=== PATIENT | female | born 1940 | race Caucasian/White ===

== ENCOUNTER 2017-08-06 20:21 | Inpatient (IN) | payer MEDICARE, OTHER ==
[2017-08-06 22:49] LABS: ADD MAN DIFF? NO
[2017-08-06 22:51] LABS: BASOPHIL # 0.1 10^3/ul (0.0-0.1); BASOPHILS % 0.8 % (0.0-2.0); EOSINOPHILS # 0.1 10^3/ul (0.0-0.5); EOSINOPHILS % 1.3 % (0.0-7.0); HEMATOCRIT 37.4 % (37.0-47.0); LYMPHOCYTES # 0.8 10^3/ul (0.8-2.9); LYMPHOCYTES % 9.8 % (15.0-51.0); MEAN CORPUSCULAR HEMOGLOBIN 27.5 pg (29.0-33.0); MEAN CORPUSCULAR HGB CONC 32.1 g/dl (32.0-37.0); MEAN CORPUSCULAR VOLUME 85.8 fl (82.0-101.0); MEAN PLATELET VOLUME 9.5 fl (7.4-10.4); MONOCYTE # 0.6 10^3/ul (0.3-0.9); MONOCYTES % 7.2 % (0.0-11.0); NEUTROPHIL # 6.9 10^3/ul (1.6-7.5); NEUTROPHILS % 80.7 % (39.0-77.0); PLATELET COUNT 275 10^3/UL (140-415); RED BLOOD COUNT 4.36 10^6/ul (4.20-5.40); RED CELL DISTRIBUTION WIDTH 16.9 % (11.5-14.5)
[2017-08-06 22:51] LABS: WHITE BLOOD COUNT 8.6 10^3/ul (4.8-10.8)
[2017-08-06 23:04] LABS: ADD UMIC YES; UR ASCORBIC ACID NEGATIVE (NEGATIVE); UR BACTERIA FEW /HPF (NONE SEEN); UR BILIRUBIN (Dip) NEGATIVE (NEGATIVE); UR BLOOD (Dip) NEGATIVE (NEGATIVE); UR CLARITY CLOUDY (CLEAR); UR COLOR AMBER (YELLOW); UR GLUCOSE (Dip) NEGATIVE (NEGATIVE); UR KETONES (Dip) NEGATIVE (NEGATIVE); UR LEUKOCYTE ESTERASE (Dip) NEGATIVE Leu/ul (NEGATIVE); UR NITRITE (Dip) NEGATIVE (NEGATIVE); UR RBC 0 /HPF (0-5); UR TOTAL PROTEIN (Dip) NEGATIVE (NEGATIVE); UR UROBILINOGEN (Dip) NEGATIVE (NEGATIVE); UR WBC 3 /HPF (0-5)
[2017-08-06 23:07] LABS: ALANINE AMINOTRANSFERASE 21 IU/L (13-69); ALBUMIN 3.6 g/dl (3.3-4.9); ALBUMIN/GLOBULIN RATIO 1.12; ALKALINE PHOSPHATASE 120 IU/L (42-121); ANION GAP 11 (8-16); ASPARTATE AMINO TRANSFERASE 26 IU/L (15-46); BILIRUBIN,INDIRECT 0.5 mg/dl (0-1.1); BILIRUBIN,TOTAL 0.5 mg/dl (0.2-1.3); BLOOD UREA NITROGEN 17 mg/dl (7-20); CALCIUM 9.4 mg/dl (8.4-10.2); CARBON DIOXIDE 38 mmol/L (21-31); CHLORIDE 98 mmol/L (97-110); CREATININE 0.52 mg/dl (0.44-1.00); GLUCOSE 87 mg/dl (70-220); LIPASE 38 U/L (23-300); POTASSIUM 3.7 mmol/L (3.5-5.1); SODIUM 143 mmol/L (135-144); TOTAL PROTEIN 6.8 g/dl (6.1-8.1)
[2017-08-06 23:19] LABS: B-TYPE NATRIURETIC PEPTIDE 1250 PG/ML (0-450)
[2017-08-06 23:21] LABS: TROPONIN-I < 0.012 ng/ml (0.00-0.12)
[2017-08-07] MEDS: CEFEPIME 1GM/50 ML (PMX) 50 ML IVPB (02:25)
[2017-08-07] MEDS: FUROSEMIDE 20 MG INJ IV (02:25)
[2017-08-07] MEDS ORDERED: NACL 0.9% 3 ML SYG IV (06:30)
[2017-08-07] MEDS ORDERED: ONDANSETRON 4 MG INJ IV (06:30)
[2017-08-07] MEDS ORDERED: NITROGLYCERIN (SL) 0.4 MG TAB SL (06:30)
[2017-08-07] MEDS ORDERED: ALBUTEROL/IPRATROPIUM (NEB) 3 ML AMP HHN (06:30)
[2017-08-07] MEDS: SUCRALFATE 1 GM TAB PO ×4 (08:19→20:48)
[2017-08-07] MEDS: ISOSORBIDE MONONITRATE(SR)60 MG TAB PO ×2 (08:19→20:49)
[2017-08-07] MEDS: METOPROLOL (XL) 25 MG TAB PO ×2 (08:20→20:50)
[2017-08-07] MEDS: OXYBUTYNIN 5 MG TAB PO (08:20)
[2017-08-07] MEDS: METHYLPREDNISOLONE 125 MG INJ IV (08:20)
[2017-08-07] MEDS: SPIRONOLACTONE 25 MG TAB PO (08:20)
[2017-08-07 08:27] LABS: ADD MAN DIFF? NO
[2017-08-07] MEDS: HEPARIN 5,000 UNIT/0.5 ML VIAL SC ×2 (08:39→20:59)
[2017-08-07] MEDS: CILOSTAZOL 100 MG TAB PO ×2 (08:50→22:09)
[2017-08-07] MEDS: URSODIOL 250 MG TAB PO ×2 (08:50→22:09)
[2017-08-07 09:02] LABS: ALANINE AMINOTRANSFERASE 11 IU/L (13-69); ALBUMIN 3.4 g/dl (3.3-4.9); ALBUMIN/GLOBULIN RATIO 1.13; ALKALINE PHOSPHATASE 95 IU/L (42-121); ASPARTATE AMINO TRANSFERASE 28 IU/L (15-46); BILIRUBIN,INDIRECT 0.6 mg/dl (0-1.1); BILIRUBIN,TOTAL 0.6 mg/dl (0.2-1.3); BLOOD UREA NITROGEN 15 mg/dl (7-20); CHLORIDE 96 mmol/L (97-110); CREATININE 0.51 mg/dl (0.44-1.00); GLUCOSE 86 mg/dl (70-220); POTASSIUM 3.6 mmol/L (3.5-5.1); SODIUM 145 mmol/L (135-144); TOTAL PROTEIN 6.4 g/dl (6.1-8.1)
[2017-08-07 09:12] LABS: ANION GAP 11 (8-16)
[2017-08-07 09:18] LABS: CARBON DIOXIDE 42 mmol/L (21-31)
[2017-08-07 09:27] LABS: WHITE BLOOD COUNT 8.9 10^3/ul (4.8-10.8)
[2017-08-07 09:27] LABS: BASOPHIL # 0.1 10^3/ul (0.0-0.1); BASOPHILS % 0.8 % (0.0-2.0); EOSINOPHILS # 0.1 10^3/ul (0.0-0.5); EOSINOPHILS % 1.1 % (0.0-7.0); HEMATOCRIT 37.7 % (37.0-47.0); HEMOGLOBIN 12.2 g/dl (12.0-16.0); LYMPHOCYTES # 0.7 10^3/ul (0.8-2.9); LYMPHOCYTES % 8.4 % (15.0-51.0); MEAN CORPUSCULAR HEMOGLOBIN 27.7 pg (29.0-33.0); MEAN CORPUSCULAR HGB CONC 32.4 g/dl (32.0-37.0); MEAN CORPUSCULAR VOLUME 85.7 fl (82.0-101.0); MEAN PLATELET VOLUME 9.4 fl (7.4-10.4); MONOCYTE # 0.6 10^3/ul (0.3-0.9); MONOCYTES % 6.8 % (0.0-11.0); NEUTROPHIL # 7.3 10^3/ul (1.6-7.5); NEUTROPHILS % 82.6 % (39.0-77.0); PLATELET COUNT 296 10^3/UL (140-415); RED CELL DISTRIBUTION WIDTH 16.7 % (11.5-14.5)
[2017-08-07] MEDS: AMLODIPINE 5 MG TAB PO (12:38)
[2017-08-07] MEDS: FUROSEMIDE 40 MG INJ IV (13:57)
[2017-08-07 15:25] LABS: MAGNESIUM 1.7 mg/dl (1.7-2.5)
[2017-08-07] MEDS: morphine 2 MG INJ IV (18:35)
[2017-08-07] MEDS: ATORVASTATIN 10 MG TAB PO (20:48)
[2017-08-07] MEDS: METHYLPREDNISOLONE 40 MG INJ IV (20:48)
[2017-08-07] MEDS: RANOLAZINE (SR) 500 MG TAB PO (20:49)
[2017-08-08 06:19] LABS: ADD MAN DIFF? NO
[2017-08-08 06:36] LABS: ABNORMAL IP MESSAGE 1; BASOPHILS % 0.2 % (0.0-2.0); HEMATOCRIT 33.6 % (37.0-47.0); LYMPHOCYTES # 0.5 10^3/ul (0.8-2.9); LYMPHOCYTES % 7.6 % (15.0-51.0); MEAN CORPUSCULAR HEMOGLOBIN 27.6 pg (29.0-33.0); MEAN CORPUSCULAR HGB CONC 32.7 g/dl (32.0-37.0); MEAN CORPUSCULAR VOLUME 84.4 fl (82.0-101.0); MEAN PLATELET VOLUME 9.7 fl (7.4-10.4); MONOCYTE # 0.1 10^3/ul (0.3-0.9); MONOCYTES % 0.8 % (0.0-11.0); NEUTROPHIL # 5.6 10^3/ul (1.6-7.5); NEUTROPHILS % 91.1 % (39.0-77.0); PLATELET COUNT 283 10^3/UL (140-415); RED BLOOD COUNT 3.98 10^6/ul (4.20-5.40); RED CELL DISTRIBUTION WIDTH 16.6 % (11.5-14.5)
[2017-08-08 06:36] LABS: WHITE BLOOD COUNT 6.2 10^3/ul (4.8-10.8)
[2017-08-08 06:55] LABS: POSITIVE DIFF @See below
[2017-08-08 07:11] LABS: BLOOD UREA NITROGEN 20 mg/dl (7-20); CALCIUM 9.1 mg/dl (8.4-10.2); CHLORIDE 93 mmol/L (97-110); CREATININE 0.65 mg/dl (0.44-1.00); GLUCOSE 137 mg/dl (70-220); MAGNESIUM 1.8 mg/dl (1.7-2.5); PHOSPHORUS 4.5 mg/dl (2.5-4.9); POTASSIUM 4.1 mmol/L (3.5-5.1); SODIUM 140 mmol/L (135-144)
[2017-08-08 07:27] LABS: ANION GAP 7 (8-16); CARBON DIOXIDE 44 mmol/L (21-31)
[2017-08-08] MEDS: SUCRALFATE 1 GM TAB PO ×4 (07:56→21:41)
[2017-08-08] MEDS: ISOSORBIDE MONONITRATE(SR)60 MG TAB PO ×2 (09:00→21:41)
[2017-08-08] MEDS: AMLODIPINE 5 MG TAB PO (09:00)
[2017-08-08] MEDS: METOPROLOL (XL) 25 MG TAB PO ×2 (09:00→21:41)
[2017-08-08] MEDS: FUROSEMIDE 40 MG INJ IV (09:00)
[2017-08-08] MEDS: METHYLPREDNISOLONE 40 MG INJ IV ×2 (09:05→21:40)
[2017-08-08] MEDS: URSODIOL 250 MG TAB PO ×2 (09:05→21:41)
[2017-08-08] MEDS: SPIRONOLACTONE 25 MG TAB PO (09:06)
[2017-08-08] MEDS: CILOSTAZOL 100 MG TAB PO ×2 (09:06→21:00)
[2017-08-08] MEDS: OXYBUTYNIN 5 MG TAB PO (09:06)
[2017-08-08] MEDS: HEPARIN 5,000 UNIT/0.5 ML VIAL SC ×2 (10:04→21:39)
[2017-08-08] MEDS: RANOLAZINE (SR) 500 MG TAB PO (21:40)
[2017-08-08] MEDS: ATORVASTATIN 10 MG TAB PO (21:41)
[2017-08-09 06:59] LABS: ADD MAN DIFF? NO
[2017-08-09 07:01] LABS: WHITE BLOOD COUNT 9.2 10^3/ul (4.8-10.8)
[2017-08-09 07:01] LABS: BASOPHILS % 0.1 % (0.0-2.0); HEMATOCRIT 32.9 % (37.0-47.0); HEMOGLOBIN 10.9 g/dl (12.0-16.0); LYMPHOCYTES # 0.6 10^3/ul (0.8-2.9); LYMPHOCYTES % 6.9 % (15.0-51.0); MEAN CORPUSCULAR HEMOGLOBIN 27.9 pg (29.0-33.0); MEAN CORPUSCULAR HGB CONC 33.1 g/dl (32.0-37.0); MEAN CORPUSCULAR VOLUME 84.1 fl (82.0-101.0); MEAN PLATELET VOLUME 9.8 fl (7.4-10.4); MONOCYTE # 0.2 10^3/ul (0.3-0.9); MONOCYTES % 2.1 % (0.0-11.0); NEUTROPHIL # 8.4 10^3/ul (1.6-7.5); NEUTROPHILS % 90.6 % (39.0-77.0); PLATELET COUNT 281 10^3/UL (140-415); RED BLOOD COUNT 3.91 10^6/ul (4.20-5.40); RED CELL DISTRIBUTION WIDTH 16.2 % (11.5-14.5)
[2017-08-09] MEDS: METHYLPREDNISOLONE 40 MG INJ IV (08:27)
[2017-08-09] MEDS: CILOSTAZOL 100 MG TAB PO (08:27)
[2017-08-09] MEDS: URSODIOL 250 MG TAB PO (08:27)
[2017-08-09] MEDS: ACETAMINOPHEN 325 MG TAB PO (08:27)
[2017-08-09] MEDS: FUROSEMIDE 40 MG INJ IV (08:27)
[2017-08-09] MEDS: ISOSORBIDE MONONITRATE(SR)60 MG TAB PO (08:28)
[2017-08-09] MEDS: SPIRONOLACTONE 25 MG TAB PO (08:28)
[2017-08-09] MEDS: SUCRALFATE 1 GM TAB PO ×2 (08:28→11:30)
[2017-08-09] MEDS: OXYBUTYNIN 5 MG TAB PO (08:28)
[2017-08-09] MEDS: AMLODIPINE 5 MG TAB PO (08:28)
[2017-08-09] MEDS: METOPROLOL (XL) 25 MG TAB PO (08:29)
[2017-08-09] MEDS: HEPARIN 5,000 UNIT/0.5 ML VIAL SC (08:34)
== END 2017-08-09 13:53 | disposition home or self-care (01) | DRG 291 ==
LOC: TEL 08-07 03:11 → E/R 20:21
DX: I11.0 Hypertensive heart disease with heart failure (principal); J96.21 Acute and chronic respiratory failure with hypoxia; J44.1 Chronic obstructive pulmonary disease with (acute) exacerbation; N39.0 Urinary tract infection, site not specified; J84.112 Idiopathic pulmonary fibrosis; E86.0 Dehydration; Z99.81 Dependence on supplemental oxygen; I50.33 Acute on chronic diastolic (congestive) heart failure; E78.5 Hyperlipidemia, unspecified; B96.20 Unspecified Escherichia coli [E. coli] as the cause of diseases classified elsewhere
CPT/HCPCS: 71045; 80048; 80053; 81001; 83690; 83735; 83880; 84100; 84484; 85025; 87086; 93005; 96374; 96375; 97161; 99285-25

== ENCOUNTER 2017-10-14 15:44 | Emergency (ER) | payer MEDICARE, OTHER ==
[2017-10-14] MEDS: KETOROLAC 15 MG INJ IM (19:01)
== END 2017-10-14 19:16 | disposition home or self-care (01) ==
LOC: E/R 15:44
DX: B35.9 Dermatophytosis, unspecified (principal); M79.89 Other specified soft tissue disorders; I10 Essential (primary) hypertension; I50.9 Heart failure, unspecified; J44.9 Chronic obstructive pulmonary disease, unspecified; R40.2142 Coma scale, eyes open, spontaneous, at arrival to emergency department; R40.2252 Coma scale, best verbal response, oriented, at arrival to emergency department; R40.2362 Coma scale, best motor response, obeys commands, at arrival to emergency department
CPT/HCPCS: 96372; 99284-25

== ENCOUNTER 2018-01-26 19:21 | Observation (INO) | payer MEDICARE, OTHER ==
[2018-01-26 20:17] LABS: ADD MAN DIFF? NO
[2018-01-26 20:23] LABS: BASOPHIL # 0.1 10^3/ul (0.0-0.1); BASOPHILS % 0.3 % (0.0-2.0); EOSINOPHILS # 0.1 10^3/ul (0.0-0.5); EOSINOPHILS % 0.3 % (0.0-7.0); HEMATOCRIT 36.7 % (37.0-47.0); LYMPHOCYTES # 0.8 10^3/ul (0.8-2.9); LYMPHOCYTES % 4.7 % (15.0-51.0); MEAN CORPUSCULAR HEMOGLOBIN 28.7 pg (29.0-33.0); MEAN CORPUSCULAR HGB CONC 32.7 g/dl (32.0-37.0); MEAN CORPUSCULAR VOLUME 87.8 fl (82.0-101.0); MEAN PLATELET VOLUME 8.6 fl (7.4-10.4); NEUTROPHIL # 15.2 10^3/ul (1.6-7.5); NEUTROPHILS % 88.2 % (39.0-77.0); PLATELET COUNT 294 10^3/UL (140-415); RED BLOOD COUNT 4.18 10^6/ul (4.20-5.40); RED CELL DISTRIBUTION WIDTH 15.1 % (11.5-14.5)
[2018-01-26 20:23] LABS: WHITE BLOOD COUNT 17.2 10^3/ul (4.8-10.8)
[2018-01-26] MEDS: ALBUTEROL 0.083% (NEB) 2.5 MG/3 ML AMP NEB (20:31)
[2018-01-26 20:44] LABS: ALANINE AMINOTRANSFERASE 21 IU/L (13-69); ALBUMIN 3.8 g/dl (3.3-4.9); ALBUMIN/GLOBULIN RATIO 1.26; ALKALINE PHOSPHATASE 81 IU/L (42-121); ANION GAP 7 (5-13); ASPARTATE AMINO TRANSFERASE 24 IU/L (15-46); BILIRUBIN,INDIRECT 0.3 mg/dl (0-1.1); BILIRUBIN,TOTAL 0.3 mg/dl (0.2-1.3); BLOOD UREA NITROGEN 13 mg/dl (7-20); CALCIUM 8.9 mg/dl (8.4-10.2); CARBON DIOXIDE 35 mmol/L (21-31); CHLORIDE 94 mmol/L (97-110); CREATININE 0.49 mg/dl (0.44-1.00); GLUCOSE 114 mg/dl (70-220); POTASSIUM 4.1 mmol/L (3.5-5.1); SODIUM 136 mmol/L (135-144); TOTAL PROTEIN 6.8 g/dl (6.1-8.1)
[2018-01-26 21:22] LABS: ADD UMIC NO; UR ASCORBIC ACID NEGATIVE (NEGATIVE); UR BACTERIA MODERATE /HPF (NONE SEEN); UR BILIRUBIN (Dip) NEGATIVE (NEGATIVE); UR BLOOD (Dip) NEGATIVE (NEGATIVE); UR CLARITY SLIGHTLY CLOUDY (CLEAR); UR COLOR YELLOW (YELLOW); UR GLUCOSE (Dip) NEGATIVE (NEGATIVE); UR KETONES (Dip) TRACE mg/dL (NEGATIVE); UR LEUKOCYTE ESTERASE (Dip) NEGATIVE Leu/ul (NEGATIVE); UR MUCUS FEW /HPF (NONE SEEN); UR NITRITE (Dip) NEGATIVE (NEGATIVE); UR RBC 4 /HPF (0-5); UR SPECIFIC GRAVITY (Dip) 1.033 (1.003-1.030); UR SQUAMOUS EPITHELIAL CELL FEW /HPF (FEW); UR TOTAL PROTEIN (Dip) NEGATIVE (NEGATIVE); UR UROBILINOGEN (Dip) 1+ mg/dL (NEGATIVE); UR WBC 1 /HPF (0-5)
[2018-01-26] MEDS ORDERED: ACETAMINOPHEN 325 MG TAB PO (22:30)
[2018-01-26] MEDS ORDERED: ONDANSETRON 4 MG INJ IV (22:30)
[2018-01-26] MEDS: CEFEPIME 2GM/50 ML (PMX) 50 ML IVPB (22:48)
[2018-01-26] MEDS: VANCOMYCIN 1 GM (PMX) 250 ML IVPB (23:10)
[2018-01-27] MEDS ORDERED: NACL 0.9% 3 ML SYG IV (03:00)
[2018-01-27] MEDS ORDERED: ONDANSETRON 4 MG TAB PO (03:00)
[2018-01-27] MEDS: ACETAMINOPHEN 325 MG TAB PO ×2 (05:32→21:02)
[2018-01-27] MEDS ORDERED: IBUPROFEN 600 MG TAB PO (07:00)
[2018-01-27] MEDS ORDERED: ALBUTEROL/IPRATROPIUM (NEB) 3 ML AMP NEB (08:00)
[2018-01-27] MEDS: ALBUTEROL/IPRATROPIUM (NEB) 3 ML AMP HHN ×2 (08:04→20:04)
[2018-01-27] MEDS: TRIAMCINOLONE ACET 0.1% 15 GM CR TOP (09:00)
[2018-01-27] MEDS: CILOSTAZOL 100 MG TAB PO ×2 (09:20→21:02)
[2018-01-27] MEDS: OXYBUTYNIN 5 MG TAB PO (09:20)
[2018-01-27] MEDS: URSODIOL 250 MG TAB PO ×2 (09:20→21:00)
[2018-01-27] MEDS: SPIRONOLACTONE 25 MG TAB PO (09:20)
[2018-01-27] MEDS: SUCRALFATE 1 GM TAB PO ×4 (09:20→21:00)
[2018-01-27] MEDS: FUROSEMIDE 20 MG INJ IV (09:22)
[2018-01-27] MEDS: METOPROLOL (XL) 25 MG TAB PO (09:22)
[2018-01-27] MEDS: ISOSORBIDE MONONITRATE(SR)60 MG TAB PO ×2 (09:22→21:00)
[2018-01-27] MEDS: DICLOFENAC SODIUM 1% GEL 100 GM TUBE TP ×2 (09:25→21:04)
[2018-01-27] MEDS: CLOTRIMAZOLE 1% 30 GM CR TOP ×2 (09:25→21:05)
[2018-01-27] MEDS: HYDROCORTISONE 2.5% 20 GM CR TOP ×2 (09:26→21:04)
[2018-01-27] MEDS: FLUTICASONE/VILANTEROL 200-25 INH DEVICE INH (09:27)
[2018-01-27] MEDS: ARFORMOTEROL TARTRATE 15MCG/2 ML AMP NEB ×2 (12:30→21:00)
[2018-01-27] MEDS: LEVOFLOXACIN 500 MG TAB PO (14:02)
[2018-01-27] MEDS: BUDESONIDE (NEB) 0.25 MG/2 ML AMP HHN (20:11)
[2018-01-27] MEDS: LACTOBACILLUS RHAMNOSUS CAP PO (21:00)
[2018-01-27] MEDS: ATORVASTATIN 10 MG TAB PO (21:00)
[2018-01-27] MEDS: TRIAMCINOLONE ACET 0.1% 15 GM OINT TOP (21:00)
[2018-01-27] MEDS: RANOLAZINE (SR) 500 MG TAB PO (21:00)
[2018-01-27] MEDS: METOPROLOL 25 MG TAB PO (21:01)
[2018-01-27] MEDS ORDERED: VANCOMYCIN IV PER PHARMACY XX (21:30)
[2018-01-28] MEDS: LEVOFLOXACIN 250 MG TAB PO (05:31)
[2018-01-28 06:20] LABS: ADD MAN DIFF? NO
[2018-01-28 06:25] LABS: BASOPHILS % 0.5 % (0.0-2.0); EOSINOPHILS # 0.1 10^3/ul (0.0-0.5); EOSINOPHILS % 1.3 % (0.0-7.0); HEMATOCRIT 35.3 % (37.0-47.0); HEMOGLOBIN 11.5 g/dl (12.0-16.0); LYMPHOCYTES % 13.6 % (15.0-51.0); MEAN CORPUSCULAR HGB CONC 32.6 g/dl (32.0-37.0); MEAN CORPUSCULAR VOLUME 86.1 fl (82.0-101.0); MEAN PLATELET VOLUME 8.7 fl (7.4-10.4); MONOCYTE # 0.8 10^3/ul (0.3-0.9); MONOCYTES % 10.6 % (0.0-11.0); NEUTROPHIL # 5.7 10^3/ul (1.6-7.5); NEUTROPHILS % 73.6 % (39.0-77.0); PLATELET COUNT 275 10^3/UL (140-415); RED CELL DISTRIBUTION WIDTH 14.8 % (11.5-14.5)
[2018-01-28 06:25] LABS: WHITE BLOOD COUNT 7.7 10^3/ul (4.8-10.8)
[2018-01-28 07:05] LABS: ALANINE AMINOTRANSFERASE 21 IU/L (13-69); ALBUMIN 2.9 g/dl (3.3-4.9); ALBUMIN/GLOBULIN RATIO 1.16; ALKALINE PHOSPHATASE 69 IU/L (42-121); ANION GAP 4 (5-13); ASPARTATE AMINO TRANSFERASE 17 IU/L (15-46); BILIRUBIN,INDIRECT 0.5 mg/dl (0-1.1); BILIRUBIN,TOTAL 0.5 mg/dl (0.2-1.3); BLOOD UREA NITROGEN 9 mg/dl (7-20); CALCIUM 8.1 mg/dl (8.4-10.2); CARBON DIOXIDE 35 mmol/L (21-31); CHLORIDE 94 mmol/L (97-110); CREATININE 0.38 mg/dl (0.44-1.00); GLUCOSE 87 mg/dl (70-220); MAGNESIUM 1.6 mg/dl (1.7-2.5); POTASSIUM 4.4 mmol/L (3.5-5.1); SODIUM 133 mmol/L (135-144); TOTAL PROTEIN 5.4 g/dl (6.1-8.1)
[2018-01-28] MEDS: BUDESONIDE (NEB) 0.25 MG/2 ML AMP HHN (08:46)
[2018-01-28] MEDS: ARFORMOTEROL TARTRATE 15MCG/2 ML AMP NEB (08:46)
[2018-01-28] MEDS: SUCRALFATE 1 GM TAB PO ×3 (09:10→17:50)
[2018-01-28] MEDS: ISOSORBIDE MONONITRATE(SR)60 MG TAB PO (09:11)
[2018-01-28] MEDS: LACTOBACILLUS RHAMNOSUS CAP PO (09:11)
[2018-01-28] MEDS: URSODIOL 250 MG TAB PO (09:11)
[2018-01-28] MEDS: METOPROLOL 25 MG TAB PO (09:11)
[2018-01-28] MEDS: SPIRONOLACTONE 25 MG TAB PO (09:11)
[2018-01-28] MEDS: CILOSTAZOL 100 MG TAB PO (09:11)
[2018-01-28] MEDS: OXYBUTYNIN 5 MG TAB PO (09:11)
[2018-01-28] MEDS: ACETAMINOPHEN 325 MG TAB PO (09:12)
[2018-01-28] MEDS: GUAIFENESIN/DM 5ML CUP PO (12:26)
[2018-01-28] MEDS: TRIAMCINOLONE ACET 0.1% 15 GM OINT TOP (12:27)
[2018-01-28] MEDS: CLOTRIMAZOLE 1% 30 GM CR TOP (12:27)
[2018-01-28] MEDS: HYDROCORTISONE 2.5% 20 GM CR TOP (12:28)
[2018-01-28] MEDS: DICLOFENAC SODIUM 1% GEL 100 GM TUBE TP (12:28)
[2018-01-28] MEDS: SODIUM PHOSPHATE 15 MMOL in SOD CHLORIDE 0.9% 250 ML IVPB (13:31)
[2018-01-28] MEDS: MAGNESIUM SULFATE 2 GM/50 ML 50 ML IVPB (13:31)
[2018-01-28] MEDS ORDERED: VANCOMYCIN 500MG/NS (PMX) 100 ML IVPB (23:00)
== END 2018-01-28 18:18 | disposition home or self-care (01) ==
LOC: E/R 19:21 → PP2 22:25
DX: J47.9 Bronchiectasis, uncomplicated (principal); J44.9 Chronic obstructive pulmonary disease, unspecified; J84.9 Interstitial pulmonary disease, unspecified; L89.153 Pressure ulcer of sacral region, stage 3; R06.89 Other abnormalities of breathing; I11.0 Hypertensive heart disease with heart failure; I50.9 Heart failure, unspecified; Z99.81 Dependence on supplemental oxygen; N39.0 Urinary tract infection, site not specified; B96.20 Unspecified Escherichia coli [E. coli] as the cause of diseases classified elsewhere; I37.1 Nonrheumatic pulmonary valve insufficiency; M41.9 Scoliosis, unspecified; E78.5 Hyperlipidemia, unspecified; I25.10 Atherosclerotic heart disease of native coronary artery without angina pectoris; R32 Unspecified urinary incontinence
CPT/HCPCS: 36415; 71045; 74176; 80053; 81001; 81003; 83735; 84100; 85025; 87040; 87086; 94640; 94664; 99285-25; G0378